=== PATIENT | male | born 1980 | race Caucasian/White ===

== ENCOUNTER 2020-04-26 03:00 | Emergency (ER) | payer SELFPAY ==
[~2020-04-26] VITALS: Ht 162.6 cm; Wt 79.2 kg
[~2020-04-26 03:00] MED LIST: LORA-476 PO
[2020-04-26 03:08] VITALS: BP 137/97
--- NOTE | 2020-04-26 03:19 | NUR ---
PT TAKEN TO BED 4
[2020-04-26] MEDS ORDERED: ASPIRIN 81 MG TAB.CHEW PO ONE (03:25)
--- NOTE | 2020-04-26 03:29 | NUR ---
Dr. Devi examining patient.
--- NOTE | 2020-04-26 03:39 | NUR ---
Pt c/o chest pain radiating to Lt arm x few hours. At bedside pt is now stating he does not have chest pain but is c/o left arm pain/tingling. A/Ox4, steady gait. States he saw PCP Thursday and was prescribed meds for HTN. Denies other medical hx. VSS. 20g IV started on RAC, ASA given per MD order.
[2020-04-26] MEDS ORDERED: KETOROLAC 30 MG/ML VIAL IVP ONE (03:40)
--- NOTE | 2020-04-26 03:53 | NUR ---
X-Ray at bedside.
[2020-04-26 03:58] LABS: BASOPHILS % (AUTO) 0.3 % (0.0-2.0); EOSINOPHILS % (AUTO) 0.1 % (0.0-4.0); HEMATOCRIT 43.7 % (36-52); HEMOGLOBIN 14.9 g/dL (12.0-18.0); LYMPHOCYTES # (AUTO) 2.2 K/uL (2.0-11.5); LYMPHOCYTES % (AUTO) 17.9 % (20.5-51.1); MEAN CORPUSCULAR HEMOGLOBIN 31 pg (27-31); MEAN CORPUSCULAR HGB CONC 34 g/dL (33-37); MEAN CORPUSCULAR VOLUME 89.7 fL (80-94); MONOCYTES # (AUTO) 0.9 K/uL (0.8-1.0); MONOCYTES % (AUTO) 7.7 % (1.7-9.3); NEUTROPHILS # (AUTO) 9.1 K/uL (1.8-7.7); PLATELET COUNT (AUTO) 216 K/uL (140-450); RED BLOOD CELL COUNT(AUTO) 4.87 MIL/uL (4.20-6.10); RED CELL DISTRIBUTION WIDTH 12.6 % (11.6-13.7); WHITE BLOOD COUNT (AUTO) 12.3 K/uL (4.8-10.8)
[2020-04-26 03:59] LABS: ALBUMIN 3.8 g/dL (3.4-5.0); ANION GAP 16.7 (8-16); CARBON DIOXIDE 24.1 mmol/L (21-32); CREATININE 0.8 mg/dL (0.6-1.3); POTASSIUM 3.8 mmol/L (3.5-5.1); TOTAL BILIRUBIN 0.9 mg/dL (0.0-1.0)
[2020-04-26] MEDS ORDERED: METH-1681 PO (04:20)
[2020-04-26 04:29] VITALS: BP 125/82
--- NOTE | 2020-04-26 04:30 | NUR ---
Patient discharged with v/s stable. Written and verbal after care instructions given and explained. Patient alert, oriented and verbalized understanding of instructions. Ambulatory with steady gait. All questions addressed prior to discharge. ID band removed. Patient advised to follow up with PMD. Rx of robaxin given. Patient educated on indication of medication including possible reaction and side effects. IV removed and pressure applied. Opportunity to ask questions provided and answered.
== END 2020-04-26 04:30 | disposition home or self-care (01) ==
LOC: MED 03:00
DX: M79.605 Pain in left leg (principal); R07.9 Chest pain, unspecified; I10 Essential (primary) hypertension; Z79.899 Other long term (current) drug therapy
CPT/HCPCS: 36415; 71045; 80053; 84484; 85025; 93005; 96374; 99285; J1885

== ENCOUNTER 2022-12-03 00:15 | Emergency (ER) | payer SELFPAY ==
[~2022-12-03] VITALS: Ht 160 cm; Wt 95.3 kg
[~2022-12-03 00:15] MED LIST changes: +METH-1681 PO
[2022-12-03 00:22] VITALS: BP 166/103; PULSE 84; RESP 18; TEMP 96.4; O2SAT 100
[2022-12-03 00:55] LABS: BASOPHILS # (AUTO) 0.1 K/uL (0.00-0.22); BASOPHILS % (AUTO) 0.8 % (0.0-2.0); EOSINOPHILS # (AUTO) 0.1 K/uL (0-0.4); EOSINOPHILS % (AUTO) 1.1 % (0.0-4.0); HEMATOCRIT 42.2 % (36-52); HEMOGLOBIN 14.7 g/dL (12.0-18.0); LYMPHOCYTES # (AUTO) 3.7 K/uL (2.0-11.5); LYMPHOCYTES % (AUTO) 39.9 % (20.5-51.1); MEAN CORPUSCULAR HEMOGLOBIN 30 pg (27-31); MEAN CORPUSCULAR HGB CONC 35 g/dL (33-37); MEAN CORPUSCULAR VOLUME 86.4 fL (80-94); MONOCYTES # (AUTO) 0.7 K/uL (0.8-1.0); NEUTROPHILS # (AUTO) 4.6 K/uL (1.8-7.7); NEUTROPHILS % (AUTO) 50.2 % (42.2-75.2); PLATELET COUNT (AUTO) 222 K/uL (140-450); RED BLOOD CELL COUNT(AUTO) 4.88 MIL/uL (4.20-6.10); RED CELL DISTRIBUTION WIDTH 12.3 % (11.6-13.7); WHITE BLOOD COUNT (AUTO) 9.2 K/uL (4.8-10.8)
[2022-12-03 01:25] LABS: ALANINE AMINOTRANSFERASE 59 U/L (12-78); ALBUMIN 3.8 g/dL (3.4-5.0); ALKALINE PHOSPHATASE 184 U/L (50-136); ANION GAP 9.3 (8-16); ASPARTATE AMINOTRANSFERASE 20 U/L (15-37); CALCIUM 8.9 mg/dL (8.5-10.1); CARBON DIOXIDE 27.7 mmol/L (21-32); CHLORIDE 99 mmol/L (98-107); CREATININE 0.8 mg/dL (0.6-1.3); GFR ARICAN-AMERICAN 136 mL/min (>90); GFR NON ARICAN-AMERICAN 112 mL/min (>90); GLUCOSE 299 mg/dL (74-106); SODIUM SERUM 133 mmol/L (136-145); TOTAL BILIRUBIN 0.5 mg/dL (0.0-1.0); TOTAL PROTEIN, SERUM 7.2 g/dL (6.4-8.2); UREA NITROGEN, BLOOD 9 mg/dL (7-18)
[2022-12-03] MEDS ORDERED: POTASSIUM CHLORIDE 10 MEQ TABER PO ONE (03:10)
[2022-12-03] MEDS ORDERED: METF-1139 PO (03:16)
[2022-12-03 03:30] VITALS: BP 120/83; PULSE 84; RESP 20; TEMP 97.2; O2SAT 100
== END 2022-12-03 03:30 | disposition home or self-care (01) ==
LOC: MED 00:15
DX: R07.9 Chest pain, unspecified (principal); E87.6 Hypokalemia; E11.65 Type 2 diabetes mellitus with hyperglycemia; I10 Essential (primary) hypertension; Z79.4 Long term (current) use of insulin; Z79.899 Other long term (current) drug therapy
CPT/HCPCS: 36415; 71045; 80053; 84484; 85025; 93005; 99285